=== PATIENT | female | born 1990 | race Caucasian/White ===

== ENCOUNTER 2017-10-02 03:50 | Inpatient (IN) | payer OTHER ==
[2017-10-02 04:20] VITALS: BMI 25.1
[2017-10-02] MEDS ORDERED: HYDROcodone/Acetaminophen 5/325 mg Tablet PO PRN ×3 (04:43→16:51)
[2017-10-02] MEDS ORDERED: LR / Pitocin 40 units/1000 ml 1,000 ML IV PRN (04:43)
[2017-10-02] MEDS ORDERED: Promethazine HCl 25 MG/ML VIAL IM PRN ×2 (04:43→10:45)
[2017-10-02] MEDS ORDERED: Lidocaine 1% (PF) 30 ML VIAL SC PRN (04:43)
[2017-10-02] MEDS ORDERED: Ibuprofen 800 MG TAB PO PRN (04:43)
--- NOTE | 2017-10-02 04:47 | PDOC.LDHP ---
Labor and Delivery H&P HPI: Patient of Dr Morelia Guerra. Patient presents to L&D due to contractions. Good FM , no ROM, some bloody dsch. No trauma HX, no PIH sxs. Dr Guerra was checking BPPs with her, which were normal, due to suspected slighly smaller than expected fetus. No other issues. EGA 39 weeks 4 days. Current gestational age (weeks): 39 (4 days) Grav: 1 Current complications: none Abnormal US findings: No Current medications: none Previous surgical history: none Allergies/Adverse Reactions: Allergies Allergy/AdvReac Type Severity Reaction Status Date / Time No Known Allergies Allergy Unverified 10/02/17 04:10 - Physical Exam Vital signs reviewed and normal: yes General: NAD Heart: RRR Lungs: CTAB Abdomen: gravid FHT: category 1 - Vaginal Exam cm dilated: 4 Effacement: 90% Station: 0 - Assessment L&D Assessment: term patient in labor - Plan Plan: admit to L&D, labor augmentation if indicated, observation in L&D, informed consent obtained, anesthesia consult for pain management, other (Admit to L&D. We will notify Dr Guerra of patient's arrival at 0530 as to not notify at 0445 (I will watch the monitor for now for her).)
[2017-10-02 05:33] LABS: Hemoglobin 12.1 g/dL (12.0-16.0); Mean Corpuscular HGB CONC 33.4 g/dL (32.0-36.0); Mean Corpuscular Volume 90.1 fl (81.0-99.0); Mean Platelet Volume 8.9 fL (7.4-10.4); Platelet Count 219 thou/uL (130-400); RBC Distribution Width 12.2 % (11.5-14.5); Red Blood Cell (RBC) Count 4.03 mill/uL (4.20-5.40)
[2017-10-02 06:02] LABS: HBSAg Index 0.14 S/CO (0-0.99); HIV (1/2) Antibody/Antigen Non-Reactive (NonReactive); HIV 1/2 INDEX 0.08 S/CO (<1.00); Hep B Surf Ag Non-Reactive S/CO (NonReactive)
[2017-10-02 06:03] LABS: Syphilis Antibody Nonreactive (Nonreactive); Syphilis Antibody Index 0.06 S/CO (<1.00 Non-Reactive)
[2017-10-02] MEDS: Lactated Ringer's 1,000 ML IV SCH ×2 (08:15→10:39)
[2017-10-02] MEDS ORDERED: Bupivacaine HCl 0.25%/Epi 0.0005/PF 10 ML VIAL FS ONE (09:50)
[2017-10-02] MEDS ORDERED: Bupivacaine 0.5% 20 ML, Fentanyl 400 MCG in Sodium Chloride 0.9% 72 ML EPIDURAL SCH (10:00)
[2017-10-02] MEDS ORDERED: Fentanyl 100 MCG/2 ML VIAL ONE (10:16)
[2017-10-02] MEDS ORDERED: Ondansetron HCl/PF 4 MG/2 ML Vial IVP PRN ×2 (10:45→16:51)
[2017-10-02] MEDS ORDERED: Lactated Ringer's 500 ML IV PRN (10:45)
[2017-10-02] MEDS ORDERED: Fentanyl 100 MCG/2 ML VIAL EPIDURAL PRN (10:45)
[2017-10-02] MEDS ORDERED: Communication Order-Pharmacy FS SCH (10:45)
[2017-10-02] MEDS ORDERED: Eucerin (Mineral Oil/Petrolatum,White) 30 gm Jar TOP PRN (10:45)
[2017-10-02] MEDS ORDERED: diphenhydrAMINE 50 MG/ML VIAL IVP PRN (10:45)
[2017-10-02] MEDS ORDERED: Acetaminophen 325 MG TAB PO PRN (10:45)
[2017-10-02] MEDS ORDERED: Naloxone HCl 0.4 mg/ml Vial IVP PRN ×2 (10:45)
[2017-10-02] MEDS ORDERED: ePHEDrine/0.9% NaCl/PF SYRINGE 50 mg/10 ml SLOW IVP PRN (10:45)
[2017-10-02] MEDS ORDERED: Preparation H Ointment 28 GM TUBE PR PRN (16:51)
[2017-10-02] MEDS ORDERED: Bisacodyl 10 MG SUPP PR PRN (16:51)
[2017-10-02] MEDS ORDERED: Lanolin Ointment 7 GM TUBE TOP PRN (16:51)
[2017-10-02] MEDS ORDERED: diphenhydrAMINE 25 MG CAP PO PRN (16:51)
[2017-10-02] MEDS ORDERED: Benzocaine/Menthol 20-0.5% 60 ML CAN TOP PRN (16:51)
[2017-10-02] MEDS ORDERED: LR / Pitocin 40 units/1000 ml 1,000 ML IV SCH (16:51)
[2017-10-02] MEDS ORDERED: Acetaminophen/Codeine 30-300mg Tablet PO PRN (16:51)
[2017-10-02] MEDS ORDERED: Milk Of Magnesia 30 ML UDCUP PO PRN (16:51)
[2017-10-02] MEDS: Ferrous Sulfate 325 MG TAB PO SCH (17:52)
[2017-10-02] MEDS: Ibuprofen 800 MG TAB PO SCH (18:37)
[2017-10-03] MEDS: Ibuprofen 800 MG TAB PO SCH ×4 (06:19→21:18)
[2017-10-03] MEDS: Docusate Calcium (SURFAK) 240 MG CAP PO SCH ×3 (06:19→21:19)
[2017-10-03] MEDS: Prenatal Vitamin 1 TAB PO SCH (09:27)
[2017-10-03] MEDS: Ferrous Sulfate 325 MG TAB PO SCH ×2 (09:27→18:05)
[2017-10-03] MEDS ORDERED: HYDROcodone/Acetaminophen 5/325 mg Tablet PO PRN (18:33)
[2017-10-03] MEDS ORDERED: Acetaminophen/Codeine 30-300mg Tablet PO PRN (18:34)
[2017-10-04] MEDS: Ibuprofen 800 MG TAB PO SCH (07:07)
[2017-10-04 08:23] VITALS: BP 115/68; TEMP 97.4
[2017-10-04] MEDS: Ferrous Sulfate 325 MG TAB PO SCH (08:47)
[2017-10-04] MEDS: Docusate Calcium (SURFAK) 240 MG CAP PO SCH (09:04)
[2017-10-04] MEDS: Prenatal Vitamin 1 TAB PO SCH (09:04)
== END 2017-10-04 15:00 | disposition home or self-care (01) | DRG 775 ==
LOC: L&D/OP 03:50 → L&D 05:21 → 3SW 16:55
PROVIDERS: ADMIT Family Medicine; ATTEND Family Medicine
PROC: 10E0XZZ Delivery of Products of Conception, External Approach (ICD-10-PCS; principal; 2017-10-02)
PROC: 0KQM0ZZ Repair Perineum Muscle, Open Approach (ICD-10-PCS; 2017-10-02)
DX: O70.1 Second degree perineal laceration during delivery (principal); Z37.0 Single live birth; O36.5930 Maternal care for other known or suspected poor fetal growth, third trimester, not applicable or unspecified; Z3A.39 39 weeks gestation of pregnancy
CPT/HCPCS: 36415; 51701; 85027; 85461; 86780; 87340; 87389; 88307; 90384; 96372; 99285; J2001; J3010; J3490; J7050

== ENCOUNTER 2019-07-11 17:04 | Outpatient (CLI) | payer OTHER ==
--- NOTE | 2019-07-11 19:00 | ULT ---
Ultrasound obstetrical Limited: DATE: 07/11/2019 HISTORY: 28-year-old female in second trimester in labor. FINDINGS: Maternal cervix: 2.8 cm in length and closed. Placenta: Posterior. No placenta previa. lie: Breech heart rate: 144 BPM. Amniotic fluid: CHAI 13 cm IMPRESSION: 1.) 2.8 cm in length cervix. 2) breech lie
== END 2019-07-11 17:05 | disposition home or self-care (01) ==
LOC: ULT 17:04
PROVIDERS: ATTEND Family Medicine
DX: O47.02 False labor before 37 completed weeks of gestation, second trimester (principal); O32.1XX0 Maternal care for breech presentation, not applicable or unspecified
CPT/HCPCS: 76815

== ENCOUNTER 2019-07-26 13:01 | Day surgery (SDC) | payer OTHER ==
[2019-07-26 13:27] VITALS: BP 116/67; TEMP 99
[2019-07-26 13:32] VITALS: BMI 22.8
[2019-07-26] MEDS ORDERED: hydrALAZINE 20 MG/ML VIAL SLOW IVP PRN (13:59)
[2019-07-26 14:41] LABS: FFN Internal QC Analyzer PASS (PASS); FFN Internal QC Cassette PASS (PASS); Fetal Fibronectin Negative (Negative)
[2019-07-26 15:26] LABS: Bilirubin Negative (Negative); Blood, Urine Negative (Negative); Clarity Clear (Clear); Glucose, Urine (Dipstick) Normal (Negative); Leukocyte Negative Leu/uL (Negative); Nitrite Negative (Negative); Protein, Urine (Dipstick) Negative (Neg-Trace); RBC/HPF None Seen HPF (0-3); Squamous Epithelial 0-3 HPF (0-3); Urobilinogen Normal mg/dL (Less than 2); WBC/HPF 0-3 HPF (0-3)
[2019-07-26 15:27] LABS: Bacteria/HPF 1+ HPF (None Seen)
--- NOTE | 2019-07-26 15:34 | ULT ---
OB ULTRASOUND: INDICATIONS: Assess cervical length and placenta location. Limited exam performed. FINDINGS: The cervix appears closed and measures 2.9 to 3.1 cm in length. Amniotic fluid volumes appears adequate. CHAI recorded at 16.1 cm. position: Vertex. Placenta location: Posterior. heart rate: 140 beats per minute. POS: [facility]
--- NOTE | 2019-07-26 17:10 | PRG ---
DATE OF SERVICE: 07/26/2019 PRIMARY VICE PRESIDENT MARKETING & DEVELOPMENT: Morelia Ruiz MD CHIEF COMPLAINT: Pelvic pressure and crampiness. HISTORY OF PRESENT ILLNESS: The patient is a 28-year-old, G2, P1 female with an intrauterine at 25 weeks and 5 days, presenting to Labor and Delivery with a long-standing several-week history of pelvic pressure and crampiness. The patient has been followed by Dr. Morelia Ruiz, was most recently seen today and was noted on clinic monitoring to be having contractions. The patient reports that she has had multiple episodes of bacterial vaginosis with this and has been treated at least twice. She denies any recurrent urinary tract infections, denies any urinary tract infections with this , denies intercourse in the last few days. She does report that she has not been eating well the last couple of days due to worrying about what has been going on. She denies any recent fever, illness, fall, headache, chest pain, shortness of breath, nausea, vomiting, diarrhea, constipation, hip problems, knee problems, muscle weakness, vaginal bleeding, leakage of fluid, urinary urgency or frequency. PAST MEDICAL HISTORY: Negative. PAST SURGICAL HISTORY: Negative. ALLERGIES: NO KNOWN DRUG ALLERGIES. MEDICATIONS: vitamins and recently just finished a course of metronidazole. SOCIAL HISTORY: Denies drug, alcohol, or tobacco use. OB LABS: Hepatitis B surface antigen in the first trimester is nonreactive. HIV in the first trimester nonreactive. She is rubella immune. RPR is nonreactive in the first trimester. Blood type is A negative. REVIEW OF SYSTEMS: Per HPI. PHYSICAL EXAMINATION: VITAL SIGNS: Blood pressure is 116/67, heart rate of 78, respiratory rate of 16, saturating 97% on room air, temperature 99.0. GENERAL: She appears to be in no acute distress. She is alert, oriented, cooperative, and pleasant to interact with. HEAD: Normocephalic and atraumatic. LUNGS: Clear to auscultation bilaterally. HEART: Has regular rate and rhythm. ABDOMEN: Gravid and soft. EXTREMITIES: Nontender and nonedematous. GENITOURINARY: Vulva is without masses, lesions, or erythema. Vagina is moist. She does have a yellowy discharge present. Cervix is visibly closed. On digital exam, cervix is closed and thick. She has no significant tenderness on her pelvic floor. heart tracing shows the fetus with a baseline in the 130s with moderate long-term variability and acceptable for 25-week gestation. Tocometer not showing any contractions. fibronectin is negative. Urinalysis shows positivity for ketones, negative for nitrites, negative for leukocyte esterase, 1+ bacteria, no white blood cells, no red blood cells, no squamous cells. VPIII shows negative for Trichomonas, positive for Gardnerella, and negative for Giovanna. ultrasound shows cervical length of 2.9 cm. ASSESSMENT AND PLAN: The patient is a 28-year-old, G2, P1 female with an intrauterine at 25 weeks and 5 days with findings positive for bacterial vaginosis and bacteriuria. No evidence of labor. No evidence of a shortening or funneling cervix. Fetus is reassuring for gestational age. In our discussion reviewing the findings, the patient shared with me that she had finished her metronidazole most recently last night. With that information, I have counseled her that the findings that we are seeing on her test today may be residual from an already treated condition. I am giving her, however, an antibiotic of metronidazole for her to hold onto, and I have asked her primary OB, Dr. Ruiz, to [id number] in the next 1 to 2 weeks. The patient does have bacteria in her urine and given the setting of her crampiness and early gestational age, we will be treating her with Macrobid twice a day for the next week. I have cultured the urine just to confirm what may be growing. The patient has also been counseled to start a probiotic, specific for women's health to supplement and support her vaginal lefty. She has been given a couple of examples and has been counseled to find one if she does not like those that has multiple strains, specific for women's vaginal health and has more than 40 to 50 billion colony-forming units per dose and to continue with that through the . I have shared these findings also to the primary OB, Dr. Morelia Ruiz. The patient has an appointment to see here in 2 weeks, which should be fine. The patient has been given precautions for labor and has been counseled to contact Dr. Ruiz sooner than her appointment should she have any growing concerns or is welcome to return back here. Job ID: [id number]
== END 2019-07-26 15:50 | disposition home or self-care (01) ==
LOC: L&D/OP 13:01
PROVIDERS: ATTEND Family Medicine
DX: O99.89 Other specified diseases and conditions complicating pregnancy, childbirth and the puerperium (principal); R10.2 Pelvic and perineal pain; R82.71 Bacteriuria; O23.592 Infection of other part of genital tract in pregnancy, second trimester; B96.89 Other specified bacterial agents as the cause of diseases classified elsewhere; Z3A.25 25 weeks gestation of pregnancy
CPT/HCPCS: 76815; 81001; 82731; 87086; 87480; 87510; 87660

== ENCOUNTER 2019-10-24 19:33 | Inpatient (IN) | payer OTHER ==
[~2019-10-24 19:33] MED LIST: Bupivacaine 0.25% HCL 30 ML VIAL ONE
[2019-10-24] MEDS ORDERED: Lidocaine 1% (PF) 30 ML VIAL SC PRN (20:18)
[2019-10-24] MEDS ORDERED: Butorphanol Tartrate 1 MG/ML VIAL SLOW IVP PRN (20:18)
[2019-10-24] MEDS ORDERED: Ibuprofen 800 MG TAB PO PRN (20:18)
[2019-10-24] MEDS ORDERED: HYDROcodone/Acetaminophen 5/325 mg Tablet PO PRN ×2 (20:18)
[2019-10-24] MEDS ORDERED: Ondansetron PF 4 MG/2 ML Vial IVP PRN ×2 (20:18→21:50)
[2019-10-24] MEDS ORDERED: Promethazine HCl 25 MG/ML VIAL IM PRN ×2 (20:18→21:50)
[2019-10-24] MEDS ORDERED: hydrALAZINE 20 MG/ML VIAL SLOW IVP PRN (20:18)
--- NOTE | 2019-10-24 20:21 | PDOC.EVN ---
Event Note - Event Note Event Note: Courtesy admit orders placed per Dr Beverley Guerra request. I did not see the patient as Dr Guerra has given report to the RN. Pitocin ordered for 0000 per her request
[2019-10-24] MEDS ORDERED: NS w/ Oxytocin 10 units 500 ML IV SCH (20:30)
[2019-10-24 21:15] LABS: Hemoglobin 12.8 g/dL (12.0-16.0); Mean Corpuscular HGB CONC 35.4 g/dL (32.0-36.0); Mean Corpuscular Hemoglobin 31.5 pg (27.0-31.0); Mean Corpuscular Volume 88.8 fL (78.0-98.0); Mean Platelet Volume 8.3 fL (7.4-10.4); Platelet Count 234 thou/uL (130-400); RBC Distribution Width 11.9 % (11.5-14.5); Red Blood Cell (RBC) Count 4.05 mill/uL (4.20-5.40); White Blood Cell (WBC) Count 13.4 thou/uL (4.8-10.8)
[2019-10-24] MEDS ORDERED: Fentanyl 4 mcg/Bup 0.1% Cadd 100 ML ONE (21:23)
[2019-10-24] MEDS ORDERED: diphenhydrAMINE 50 MG/ML VIAL IVP PRN (21:50)
[2019-10-24] MEDS ORDERED: EPHEDRINE 25 MG/5 ML SYRINGE SLOW IVP PRN (21:50)
[2019-10-24] MEDS ORDERED: Naloxone HCl 0.4 mg/ml Vial IVP PRN ×2 (21:50)
[2019-10-24] MEDS ORDERED: Lactated Ringer's 500 ML IV PRN (21:50)
[2019-10-24] MEDS ORDERED: Acetaminophen 325 MG TAB PO PRN (21:50)
[2019-10-24 21:53] LABS: Syphilis Antibody Nonreactive (Nonreactive); Syphilis Antibody Index 0.08 S/CO (<1.00 Non-Reactive)
[2019-10-24] MEDS ORDERED: Communication Order-Pharmacy FS SCH (22:00)
[2019-10-24] MEDS ORDERED: Fentanyl 4 mcg/Bupivacaine 0.1% Cassette 100 ML EPIDURAL SCH (22:00)
[2019-10-24] MEDS ORDERED: Misoprostol 200 MCG TAB ONE (22:25)
[2019-10-24] MEDS ORDERED: Methylergonovine 0.2 MG/ML VIAL ONE ×2 (22:25→22:28)
[2019-10-24 23:12] LABS: HBSAg Index 0.21 S/CO (0-0.99); HIV (1/2) Antibody/Antigen Non-Reactive (NonReactive); Hep B Surf Ag Non-Reactive S/CO (NonReactive)
[2019-10-24] MEDS ORDERED: FLU VACC QS2019-20(6MOS UP)/PF 60 MCG/0.5 ML SYRINGE IM ONE (23:15)
[2019-10-24] MEDS: Lactated Ringer's 1,000 ML IV SCH ×2 (23:31→23:32)
[2019-10-24] MEDS: NS / Oxytocin 40 units/1000ml 1,000 ML IV PRN (23:31)
[2019-10-25] MEDS ORDERED: NS w/ Oxytocin 10 units 500 ML IV SCH
[2019-10-25] MEDS: NS / Oxytocin 40 units/1000ml 1,000 ML IV PRN (01:19)
[2019-10-25] MEDS ORDERED: Milk Of Magnesia 30 ML UDCUP PO PRN (01:38)
[2019-10-25] MEDS ORDERED: diphenhydrAMINE 25 MG CAP PO PRN (01:38)
[2019-10-25] MEDS ORDERED: Benzocaine-Menthol 82.5 ML CAN TOP PRN (01:38)
[2019-10-25] MEDS ORDERED: Ondansetron PF 4 MG/2 ML Vial IVP PRN (01:38)
[2019-10-25] MEDS ORDERED: Acetaminophen/Codeine 30-300mg Tablet PO PRN (01:38)
[2019-10-25] MEDS ORDERED: NS / Oxytocin 40 units/1000ml 1,000 ML IV SCH (01:38)
[2019-10-25] MEDS ORDERED: Bisacodyl 10 MG SUPP PR PRN (01:38)
[2019-10-25] MEDS ORDERED: HYDROcodone/Acetaminophen 5/325 mg Tablet PO PRN (01:38)
[2019-10-25] MEDS ORDERED: Lanolin Ointment 7 GM TUBE TOP PRN (01:38)
[2019-10-25] MEDS ORDERED: hydrALAZINE 20 MG/ML VIAL SLOW IVP PRN (01:38)
[2019-10-25] MEDS ORDERED: Preparation H Ointment 28 GM TUBE PR PRN (01:38)
[2019-10-25] MEDS ORDERED: Sodium Chloride 0.9% 10 ML ONE (04:42)
[2019-10-25] MEDS: Ibuprofen 800 MG TAB PO SCH ×3 (05:31→17:04)
[2019-10-25] MEDS: Prenatal Vitamin 1 TAB PO SCH (08:23)
[2019-10-25] MEDS: Docusate Calcium (SURFAK) 240 MG CAP PO SCH (08:23)
[2019-10-25] MEDS: Ferrous Sulfate 325 MG TAB PO SCH ×2 (08:23→17:05)
[2019-10-26] MEDS: Docusate Calcium (SURFAK) 240 MG CAP PO SCH ×2 (00:10→09:34)
[2019-10-26] MEDS: Ibuprofen 800 MG TAB PO SCH ×3 (00:10→09:35)
[2019-10-26 08:45] VITALS: BP 113/78; TEMP 98.1
[2019-10-26] MEDS: Prenatal Vitamin 1 TAB PO SCH (09:34)
[2019-10-26] MEDS: Ferrous Sulfate 325 MG TAB PO SCH (09:36)
== END 2019-10-26 12:30 | disposition home or self-care (01) | DRG 807 ==
LOC: L&D/OP 19:33 → L&D 20:18 → 3SW 10-25 02:45
PROVIDERS: ADMIT Obstetrics & Gynecology; ATTEND Obstetrics & Gynecology
PROC: 10E0XZZ Delivery of Products of Conception, External Approach (ICD-10-PCS; principal; 2019-10-24)
PROC: 0HQ9XZZ Repair Perineum Skin, External Approach (ICD-10-PCS; 2019-10-24)
DX: O70.0 First degree perineal laceration during delivery (principal); Z37.0 Single live birth; Z3A.38 38 weeks gestation of pregnancy
CPT/HCPCS: 36415; 85027; 85461; 86780; 86850; 86870; 86900; 86901; 87340; 87389; 88307; 90384; 96372; 99285; J2210; S0020